=== PATIENT | male | born 1955 | race Caucasian/White ===

== ENCOUNTER 2022-11-13 16:49 | Emergency (ER) | payer OTHER ==
[~2022-11-13] VITALS: Ht 188 cm; Wt 108.9 kg
[2022-11-13] MEDS ORDERED: IBUPROFEN 600 MG TABLET PO ONE (17:30)
[2022-11-13] MEDS ORDERED: IBUPROFEN 600 MG TABLET ONE (17:38)
[2022-11-13] MEDS ORDERED: IBUP-1955 PO (18:38)
--- NOTE | 2022-11-13 18:43 | NUR ---
Patient discharged to home in stable condition. Written and verbal after care instructions given. Patient verbalizes understanding of instructions. Stressed follow up or return to ER for worsening s/s.
== END 2022-11-13 18:44 | disposition home or self-care (01) ==
LOC: ER 16:55
DX: S83.92XA Sprain of unspecified site of left knee, initial encounter (principal); X58.XXXA Exposure to other specified factors, initial encounter; Y93.89 Activity, other specified; Y92.89 Other specified places as the place of occurrence of the external cause; Y99.8 Other external cause status
CPT/HCPCS: A4663